=== PATIENT | female | born 2000 | race Caucasian/White ===

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

== ENCOUNTER 2020-05-05 13:33 | Emergency (ER) | payer SELFPAY ==
[~2020-05-05] VITALS: Ht 167.6 cm; Wt 95.5 kg
[~2020-05-05 13:33] MED LIST changes: +CIPROFLOXACN500 MG PO; +DICYCLOMINE10 MG PO; +METRONIDAZOL500 MG PO; +ZOFRAN4 MG/TAB PO
[2020-05-05 15:45] VITALS: BP 135/75
== END 2020-05-05 15:38 | disposition home or self-care (01) | DRG 563 ==
LOC: ED 13:33
DX: S63.502A Unspecified sprain of left wrist, initial encounter (principal); S53.402A Unspecified sprain of left elbow, initial encounter; W18.39XA Other fall on same level, initial encounter; Y93.83 Activity, rough housing and horseplay; Y92.009 Unspecified place in unspecified non-institutional (private) residence as the place of occurrence of the external cause

== ENCOUNTER 2021-06-29 01:42 | Emergency (ER) | payer MEDICAID ==
[~2021-06-29] VITALS: Ht 167.6 cm; Wt 100.0 kg
[2021-06-29 01:57] VITALS: BP 135/95
[2021-06-29 02:32] VITALS: BP 127/88
[2021-06-29 02:40] VITALS: BP 127/88
== END 2021-06-29 02:54 | disposition home or self-care (01) ==
LOC: ED 01:42
DX: S93.402A Sprain of unspecified ligament of left ankle, initial encounter (principal); X50.0XXA Overexertion from strenuous movement or load, initial encounter; Z87.442 Personal history of urinary calculi

== ENCOUNTER 2021-07-26 12:32 | Emergency (ER) | payer MEDICAID ==
[2021-07-26] VITALS (11 sets, daily range): BP systolic 105–147; BP diastolic 57–92
[~2021-07-26] VITALS: Ht 167.6 cm; Wt 117.9 kg
[2021-07-26 13:22] LABS: HEMATOCRIT 38.2 % (37.0-47.0); HEMOGLOBIN 11.7 g/dl (12.0-16.0); IMMATURE GRANULOCYTES 0.2 % (0.0-5.0); MEAN CORPUSCULAR HGB CONC 30.6 g/dL CAL (32.0-36.0); NEUT# 6.38 thou/uL (2.00-7.15); RED BLOOD COUNT 5.09 mill/uL (4.20-5.60); RED CELL DISTRI WIDTH 15.4 % (11.5-15.5)
[2021-07-26 13:23] LABS: URINE BILIRUBIN - DIPSTICK NEGATIVE (NEGATIVE); URINE BLOOD DIPSTICK LARGE (NEGATIVE); URINE COLOR YELLOW; URINE GLUCOSE - DIPSTICK NEGATIVE (NEGATIVE); URINE KETONE NEGATIVE (NEGATIVE); URINE LEUK ESTERASE NEGATIVE (NEGATIVE); URINE PROTEIN - DIPSTICK NEGATIVE (NEG-TRACE); URINE UROBILINOGEN - DIPSTICK 0.2 E.U./dL (0.2)
[2021-07-26 13:29] LABS: URINE EPITHELIAL CELLS FEW EPI/hpf (0-FEW); URINE NITRITE - DIPSTICK NEGATIVE (Negative)
[2021-07-26 13:39] LABS: ALKALINE PHOSPHATASE 93 u/l (38-126); ANION GAP 12 (6-22 (CALC)); BILIRUBIN, TOTAL 0.4 mg/dL (0.0-1.4); BUN 13 mg/dL (7-17); BUN/CREATININE RATIO 18 (12-20 (CALC)); CARBON DIOXIDE 25 mmol/l (22-30); CHLORIDE 105 mmol/l (95-108); CREATININE 0.7 mg/dL (0.5-1.0); GFR > 60 ML/MIN (>=60 (CALC)); GFR FOR AFR.AMER. > 60 ML/MIN (>=60 (CALC)); LIPASE 29 u/l (23-300); POTASSIUM 4.3 mmol/l (3.5-5.1); SGOT/AST 19 u/l (14-36); SODIUM 137 mmol/l (137-146); TOTAL PROTEIN 8.1 g/dL (6.3-8.2)
[2021-07-26] MEDS ORDERED: TAMSULOSIN0.4 MG PO (15:39)
[2021-07-26] MEDS ORDERED: LORTAB 5/3255 MG PO (15:39)
== END 2021-07-26 16:28 | disposition home or self-care (01) ==
LOC: ED 12:32
PROVIDERS: Nurse Practitioner
DX: N20.1 Calculus of ureter (principal); Z87.442 Personal history of urinary calculi

== ENCOUNTER 2021-10-28 14:28 | Emergency (ER) | payer MEDICAID ==
[~2021-10-28] VITALS: Ht 167.6 cm; Wt 113.6 kg
[2021-10-28] VITALS (10 sets, daily range): BP systolic 97–146; BP diastolic 59–87
[2021-10-28 16:10] LABS: HEMATOCRIT 38.4 % (37.0-47.0); HEMOGLOBIN 11.6 g/dl (12.0-16.0); IMMATURE GRANULOCYTES 0.2 % (0.0-5.0); MEAN CELL VOLUME 78.4 fL CALC (80.0-100.0); MEAN CORPUSCULAR HGB 23.7 pG CALC (26.0-32.0); MEAN CORPUSCULAR HGB CONC 30.2 g/dL CAL (32.0-36.0); NEUT# 8.67 thou/uL (2.00-7.15); RED BLOOD COUNT 4.9 mill/uL (4.20-5.60); RED CELL DISTRI WIDTH 14.8 % (11.5-15.5)
[2021-10-28 16:11] LABS: URINE BILIRUBIN - DIPSTICK NEGATIVE (NEGATIVE); URINE BLOOD DIPSTICK LARGE (NEGATIVE); URINE COLOR YELLOW; URINE GLUCOSE - DIPSTICK NEGATIVE (NEGATIVE); URINE KETONE NEGATIVE (NEGATIVE); URINE LEUK ESTERASE NEGATIVE (NEGATIVE); URINE PROTEIN - DIPSTICK TRACE mg/dL (NEG-TRACE); URINE SPECIFIC GRAVITY >=1.030; URINE UROBILINOGEN - DIPSTICK 0.2 E.U./dL (0.2)
[2021-10-28 16:15] LABS: URINE NITRITE - DIPSTICK NEGATIVE (Negative)
[2021-10-28 16:20] LABS: URINE SQUAMOUS EPITHELIAL CELL FEW EPI/hpf (0-FEW); URINE WBC 0-2 WBC/hpf (0-5)
[2021-10-28 16:23] LABS: ALBUMIN 4.1 g/dL (3.2-5.0); ALKALINE PHOSPHATASE 103 u/l (38-126); ANION GAP 11 (6-22 (CALC)); BILIRUBIN, TOTAL 0.5 mg/dL (0.0-1.4); BUN 11 mg/dL (7-17); BUN/CREATININE RATIO 18 (12-20 (CALC)); CARBON DIOXIDE 28 mmol/l (22-30); CHLORIDE 103 mmol/l (95-108); CREATININE 0.6 mg/dL (0.5-1.0); GFR FOR AFR.AMER. > 60 ML/MIN (>=60 (CALC)); GFR OTHER RACES > 60 ML/MIN (>=60 (CALC)); LIPASE 23 u/l (23-300); POTASSIUM 4.3 mmol/l (3.5-5.1); SGOT/AST 27 u/l (14-36); SODIUM 138 mmol/l (137-146); TOTAL PROTEIN 8.1 g/dL (6.3-8.2)
[2021-10-28] MEDS ORDERED: NAPROXEN500 MG PO (18:56)
[2021-10-28] MEDS ORDERED: HYDROCO/APAP1 TA9 PO (18:56)
[2021-10-28] MEDS ORDERED: TAMSULOSIN0.4 MG PO (18:56)
== END 2021-10-28 19:17 | disposition home or self-care (01) ==
LOC: ED 14:28
PROVIDERS: Family Medicine
DX: N20.0 Calculus of kidney (principal); Z87.442 Personal history of urinary calculi
CPT/HCPCS: Q9967